=== PATIENT | male | born 1995 | race American Indian/Alaskan Native ===

== ENCOUNTER 2016-12-20 12:00 | Emergency (ER) | payer SELFPAY ==
[2016-12-20 12:09] VITALS: BP 117/77
[2016-12-20] MEDS ORDERED: THERMAZENE 50 GRAM TP ONE (13:41)
[2016-12-20] MEDS ORDERED: NACL 0.9% IR ONE (13:56)
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
[2016-12-20] MEDS ORDERED: NACL 0.9% 500 ML IR ONE (14:00)
== END 2016-12-20 14:44 | disposition home or self-care (01) ==
LOC: ED 12:00
DX: S90.414A Abrasion, right lesser toe(s), initial encounter (principal); S80.211A Abrasion, right knee, initial encounter; S40.811A Abrasion of right upper arm, initial encounter; W19.XXXA Unspecified fall, initial encounter; Y93.89 Activity, other specified; Y99.8 Other external cause status; Y92.89 Other specified places as the place of occurrence of the external cause
CPT/HCPCS: 99283